=== PATIENT | female | born 1960 | race Caucasian/White ===

== ENCOUNTER → 2021-03-09 | Outpatient (CLI) | payer BC ==
[~2021-03-09] MED LIST: CBD OIL SL; COZAAR50 MG PO; ESTRACE1 MG PO; IBUPROFEN800 MG PO; KEFLEX CAP 500500 MG PO; LOVENOX SY40 MG/0.4 SQ; MOBIC15 MG PO; NEXIUM40 MG PO; PERCOCET 10-321 EACH PO; PHENERGAN 25 MG25 M1 PO; PROGESTERONE200 MG PO; TRINTELLIX PO; VITAMIN C 500500 MG PO; VITAMIN D10000 UNIT PO
== END ==
LOC: KOH-I 08:40
DX: M79.671 Pain in right foot (principal); R93.6 Abnormal findings on diagnostic imaging of limbs; Z98.890 Other specified postprocedural states
CPT/HCPCS: 73630